=== PATIENT | female | born 1945 | race Asian ===

== ENCOUNTER 2017-02-21 05:46 | Day surgery (SDC) | payer OTHER ==
[~2017-02-21] VITALS: Ht 149.9 cm; Wt 55.0 kg
[~2017-02-21 05:46] MED LIST: ACETAMINOPHEN 325 MG TABLET PO PRN; AMLO-511 PO; ATEN50TA PO; CYCLOPENTOLATE HCL 2% 2 ML OPHTHALMIC SOLUTION OS SCH; FentaNYL CITRATE-PF 100 MCG/2 ML VIAL IVP ONE; GLIM2 PO; HYDR25TA PO; LOSA50TA37 PO; LOVA20 PO; METF500T4 PO; MIDAZOLAM HCL 2 MG/2 ML VIAL IVP ONE; PHENYLEPHRINE HCL 2.5% 2 ML OPHTHALMIC SOLUTION OS SCH; SITA100 PO; TETRACAINE HCL/PF 0.5% 4 ML OPHTHALMIC SOLUTION OS SCH
[2017-02-21] MEDS ORDERED: RINGERS SOLUTION,LACTATED 500 ML IV ONE ×3 (05:54→06:30)
[2017-02-21] MEDS ORDERED: TETRACAINE HCL/PF 0.5% 4 ML OPHTHALMIC SOLUTION ONE (05:55)
[2017-02-21] MEDS ORDERED: CYCLOPENTOLATE HCL 2% 2 ML OPHTHALMIC SOLUTION ONE (05:55)
[2017-02-21] MEDS ORDERED: DICLOFENAC SODIUM 0.1% 2.5 ML OPHTHALMIC SOLUTION ONE (05:55)
[2017-02-21] MEDS ORDERED: MOXIFLOXACIN HCL 0.5% 3 ML OPHTHALMIC SOLUTION ONE (05:55)
[2017-02-21] MEDS ORDERED: PHENYLEPHRINE HCL 2.5% 2 ML OPHTHALMIC SOLUTION ONE (05:56)
[2017-02-21] MEDS: DICLOFENAC SODIUM 0.1% 2.5 ML OPHTHALMIC SOLUTION OS SCH ×3 (06:45→07:02)
[2017-02-21] MEDS: PHENYLEPHRINE HCL 2.5% 2 ML OPHTHALMIC SOLUTION OS SCH ×3 (06:45→07:01)
[2017-02-21] MEDS: CYCLOPENTOLATE HCL 2% 2 ML OPHTHALMIC SOLUTION OS SCH ×3 (06:46→07:01)
[2017-02-21] MEDS: MOXIFLOXACIN HCL 0.5% 3 ML OPHTHALMIC SOLUTION OS SCH ×3 (06:46→07:02)
[2017-02-21] MEDS: TETRACAINE HCL/PF 0.5% 4 ML OPHTHALMIC SOLUTION OS SCH ×3 (06:46→07:02)
[2017-02-21 06:52] LABS: GLUCOSE,POINT OF CARE 153 MG/DL (70-110)
[2017-02-21] MEDS ORDERED: ACETAMINOPHEN 325 MG TABLET PO PRN (09:00)
== END 2017-02-21 09:30 | disposition home or self-care (01) ==
LOC: SURGERY 05:46
PROVIDERS: ATTEND Ophthalmology
DX: E11.36 Type 2 diabetes mellitus with diabetic cataract (principal); H25.12 Age-related nuclear cataract, left eye; I10 Essential (primary) hypertension; Z88.8 Allergy status to other drugs, medicaments and biological substances; Z90.49 Acquired absence of other specified parts of digestive tract; Z98.41 Cataract extraction status, right eye
CPT/HCPCS: 66984; 82962; 93005; C1780; J7120; J2250; J3010